=== PATIENT | male | born 1995 | race African-American/Black ===

== ENCOUNTER 2018-06-30 18:19 | Emergency (ER) | payer MEDICAID ==
[~2018-06-30] VITALS: Ht 190.5 cm; Wt 109.0 kg
[2018-06-30] MEDS ORDERED: IBUPROFEN 600MG TABLET PO ONE (20:30)
[2018-06-30 22:42] VITALS: BP 113/63
== END 2018-06-30 22:43 | disposition home or self-care (01) ==
LOC: ER 19:00
DX: S16.1XXA Strain of muscle, fascia and tendon at neck level, initial encounter (principal); G93.0 Cerebral cysts; R03.0 Elevated blood-pressure reading, without diagnosis of hypertension; V43.02XA Car driver injured in collision with other type car in nontraffic accident, initial encounter; Y93.89 Activity, other specified; Y92.410 Unspecified street and highway as the place of occurrence of the external cause; F17.210 Nicotine dependence, cigarettes, uncomplicated; F12.90 Cannabis use, unspecified, uncomplicated
CPT/HCPCS: 99284